=== PATIENT | female | born 1990 | race Caucasian/White ===

== ENCOUNTER 2019-01-28 20:10 | Emergency (ER) | payer OTHER ==
[~2019-01-28] VITALS: Ht 162.6 cm; Wt 76.4 kg
[2019-01-28 20:14] VITALS: BP 125/60; PULSE 71; TEMP 97.8
[2019-01-28] MEDS ORDERED: CEPHALEXIN500 M1 PO (21:30)
== END 2019-01-28 22:28 | disposition home or self-care (01) ==
LOC: COL.ER 20:10
DX: L03.012 Cellulitis of left finger (principal)

== ENCOUNTER 2020-11-14 20:36 | Emergency (ER) | payer OTHER ==
[~2020-11-14] VITALS: Ht 162.6 cm; Wt 77.3 kg
[~2020-11-14 20:36] MED LIST: CEPHALEXIN500 M1 PO
[2020-11-14 22:05] VITALS: BP 134/83; PULSE 78; TEMP 98.3
== END 2020-11-14 22:10 | disposition home or self-care (01) ==
LOC: COL.ER 20:36
DX: N93.9 Abnormal uterine and vaginal bleeding, unspecified (principal); Z88.1 Allergy status to other antibiotic agents